=== PATIENT | male | born 1995 | race African-American/Black ===

== ENCOUNTER 2017-12-31 12:40 | Emergency (ER) | payer SELFPAY ==
[~2017-12-31] VITALS: Ht 185.4 cm; Wt 93.4 kg
[2017-12-31 12:47] VITALS: BP 107/67
[2017-12-31 13:42] VITALS: BP 105/65
== END 2017-12-31 13:42 | disposition home or self-care (01) ==
LOC: MED 12:40
DX: S93.401A Sprain of unspecified ligament of right ankle, initial encounter (principal); X58.XXXA Exposure to other specified factors, initial encounter; Y93.89 Activity, other specified; Y92.89 Other specified places as the place of occurrence of the external cause; Y99.8 Other external cause status
CPT/HCPCS: 73610; 99284; Q0092